=== PATIENT | male | born 1980 | race Caucasian/White ===

== ENCOUNTER 2016-12-10 14:55 | Emergency (ER) | payer OTHER ==
[2016-12-10 15:00] VITALS: BP 133/61; PULSE 82; TEMP 98.8; BMI 36.6
--- NOTE | 2016-12-10 16:07 | PDOC ---
History of Present Illness - General Chief Complaint: Bite Stated Complaint: ANIMAL BITE Time Seen by Provider: 12/10/16 15:39 History Source: Patient Exam Limitations: No Limitations - History of Present Illness Initial Comments: 12/10/16 16:15 36 year old male presents to emergency room complaining of being bitten by a cat at employment; nursing home. Reports numbness at site of animal bite. States cat bit him 4 times. Does not report any change in animal's behavior, states not sure if cat has yet received his rabies shot. Does recall getting rabies vaccine last year before he started his employment. Timing/Duration: reports: just prior to arrival Severity: Yes: mild Location: reports: hands Respiratory Risk Factors: reports: no cause identified, other Modifying Factors: improves with: other Associated Symptoms: reports: denies symptoms Past History - Travel Traveled outside of the country in the last 30 days: No Close contact w/someone who was outside of country & ill: No - Past Medical History Allergies/Adverse Reactions: Allergies Allergy/AdvReac Type Severity Reaction Status Date / Time cephalexin monohydrate Allergy Verified 12/10/16 15:00 [From Keflex] Home Medications: Ambulatory Orders NK [No Known Home Medication] 12/10/16 - Psycho/Social/Smoking Cessation Hx Suicidal Ideation: No Smoking History: Never smoked Information on smoking cessation initiated: No Review of Systems - Review of Systems Able to Perform ROS?: Yes Constitutional: No: Chills, Fever, Loss of Appetite, Malaise, Night Sweats, Weight Stable HEENTM: No: Nose Bleeding, Hearing Loss, Throat Swelling Respiratory: No: Orthopnea, Shortness of Breath, SOB at Rest, Wheezing, Productive cough Cardiac (ROS): No: Chest Pain, Lightheadedness, Palpitations ABD/GI: No: Abdominal Distended, Blood Streaked Bowels, Constipated, Poor Appetite, Poor Fluid Intake, Indigestion Integumentary: Yes: Other (cat bite to left hand and wrist ) *Physical Exam - Vital Signs Last Vital Signs Temp Pulse Resp BP Pulse Ox 98.8 F 82 18 133/61 98 12/10/16 14:56 12/10/16 14:56 12/10/16 14:56 12/10/16 14:56 12/10/16 14:56 - Physical Exam General Appearance: Yes: Nourished, Appropriately Dressed. No: Apparent Distress HEENT: positive: HASEEB, TMs Normal, Pharynx Normal Neck: positive: Trachea midline, Supple. negative: Lymphadenopathy (R), Lymphadenopathy (L) Respiratory/Chest: positive: Lungs Clear, Normal Breath Sounds. negative: Respiratory Distress, Accessory Muscle Use Cardiovascular: positive: Regular Rhythm, Regular Rate, S1, S2 Integumentary: positive: Other (left 4th digit with puncture wound, scratches noted on dorsal hand and wrist going up forearm) Neurologic: positive: acid condenser II-XII NML intact, Fully Oriented, Alert, Normal Mood/ Affect, Normal Response, Motor Strength 01/12 Medical Decision Making - Medical Decision Making 12/10/16 16:18 36 year old male with animal bite -tetanus given -instructed to observe cat for 10 days( at nursing home) if change in behavior return for rabies vaccine -had rabies immune serology test showing titers for rabies vaccine. *DC/Admit/Observation/Transfer Diagnosis at time of Disposition: Animal bite of finger Qualifiers: Encounter type: initial encounter Qualified Code(s): S61.259A - Open bite of unspecified finger without damage to nail, initial encounter Animal bite of hand Qualifiers: Encounter type: initial encounter Laterality: left Qualified Code(s): S61.452A - Open bite of left hand, initial encounter - Discharge Dispostion Condition at time of disposition: Good Admit: No - Patient Instructions Printed Discharge Instructions: How to Care for a Domestic Animal Bite, DI for Animal Bites Additional Instructions: Wash area daily with mild soap and water. Please observe cat for next 10 days if any change in behavior similar to rabid animal return for rabies shot. Please note you were given tetanus vaccine today - Post Discharge Activity Work/School Note: Back to Work
[2016-12-10] MEDS ORDERED: DIPHTH,PERTUSS(ACELL),TET 0.5 ML DISP.SYRIN IM ONE (16:20)
== END 2016-12-10 16:36 | disposition home or self-care (01) ==
LOC: JERFT 14:55
PROC: 3E0234Z Introduction of Serum, Toxoid and Vaccine into Muscle, Percutaneous Approach (ICD-10-PCS; principal; 2016-12-10)
DX: S61.452A Open bite of left hand, initial encounter (principal); S61.255A Open bite of left ring finger without damage to nail, initial encounter; W55.01XA Bitten by cat, initial encounter; Y93.K9 Activity, other involving animal care; Y92.89 Other specified places as the place of occurrence of the external cause; Y99.0 Civilian activity done for income or pay
CPT/HCPCS: 90715; 99281-25

== ENCOUNTER 2018-02-14 11:07 | Emergency (ER) | payer OTHER ==
[2018-02-14 11:17] VITALS: BP 124/68; PULSE 85; TEMP 98.2; BMI 40.8
--- NOTE | 2018-02-14 11:39 | PDOC ---
History of Present Illness - General Chief Complaint: Injury Stated Complaint: FALL/ LT SHOULDER PAIN Time Seen by Provider: 02/14/18 11:27 History Source: Patient Exam Limitations: No Limitations - History of Present Illness Initial Comments: CHIEF COMPLAINT: 37 y/o afebrile male c/o left shoulder pain from work injury today. 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 He states he has some pain with movement now and was sent in by his job to be evaluated. He denies numbness/tingling to extremities. Vital signs on arrival are within normal limits. REVIEW OF SYSTEMS: GENERAL/CONSTITUTIONAL:\ No fever/chills. No weakness. No weight change. MUSCULOSKELETAL: +left shoulder pain. No neck or back pain. SKIN: No rash or easy bruising. NEUROLOGIC: No headache, vertigo, loss of consciousness, or loss of sensation. PHYSICAL EXAM: VITAL_SIGNS: within normal limits GENERAL_APPEARANCE: alert, cooperative, no obvious discomfort. MENTAL_STATUS: speech clear, oriented X 3, responds appropriately to questions. NEURO: motor intact and sensory intact in injured extremity. EXTREMITIES: Minimal pain with palpation of left AC joint. Pain with abduction of left arm > 90 degrees. Patient cannot lift left arm overhead. No clavicle crepitus, deformities or tenting b/l. SKIN: warm, dry, good color. Past History - Past Medical History Allergies/Adverse Reactions: Allergies Allergy/AdvReac Type Severity Reaction Status Date / Time cephalexin monohydrate Allergy Verified 02/14/18 11:13 [From Keflex] Home Medications: Ambulatory Orders NK [No Known Home Medication] 12/10/16 COPD: No - Suicide/Smoking/Psychosocial Hx Smoking History: Never smoked Information on smoking cessation initiated: No Hx Alcohol Use: No Drug/Substance Use Hx: No Substance Use Type: None *Physical Exam - Vital Signs Last Vital Signs Temp Pulse Resp BP Pulse Ox 98.2 F 85 18 124/68 100 02/14/18 11:14 02/14/18 11:14 02/14/18 11:14 02/14/18 11:14 02/14/18 11:14 Medical Decision Making - Medical Decision Making A/P: 37 y/o male with left rotator cuff injury. No signs of shoulder dislocation. Suggested sling but patient refused. Suggested NSAIDs but patient refused. Imaging not necessary at this time as there are no bony deformities. Suggested he avoid heavy lifting/pulling/pushing, take tylenol/ motrin for pain, stretch and f/u with Dr. Em ASHBY. Pt provided with a work note although he states he most likely won't use it. The patient verbalizes understanding of all instructions, has no further questions and is awaiting discharge. *DC/Admit/Observation/Transfer Diagnosis at time of Disposition: Rotator cuff strain Qualifiers: Encounter type: initial encounter Laterality: left Qualified Code(s): S46.012A - Strain of muscle(s) and tendon(s) of the rotator cuff of left shoulder, initial encounter - Discharge Dispostion Disposition: HOME Condition at time of disposition: Good - Referrals Referrals: Vernon Strickland MD [Staff Physician] - - Patient Instructions Printed Discharge Instructions: DI for Rotator Cuff Injury, How To Perform RICE (Rest, Ice, Compress, Elevate) Additional Instructions: Discharge Instructions: -You injured your rotator cuff -No heavy lifting, pushing or pulling until evaluated by Dr. Strickland -please take motrin or tylenol for pain if needed -Call Dr. Strickland today to schedule a follow up appointment -Alternate heating pad/ice to affected area -Stretch affected area multiple times per day -Return to the ER with any worsening or concerning symptoms - Post Discharge Activity Forms/Work/School Notes: Back to Work
== END 2018-02-14 11:45 | disposition home or self-care (01) ==
LOC: JERFT 11:07
DX: S46.012A Strain of muscle(s) and tendon(s) of the rotator cuff of left shoulder, initial encounter (principal); X50.0XXA Overexertion from strenuous movement or load, initial encounter; Y93.H9 Activity, other involving exterior property and land maintenance, building and construction; Y92.414 Local residential or business street as the place of occurrence of the external cause; Y99.0 Civilian activity done for income or pay
CPT/HCPCS: 99281-25